=== PATIENT | female | born 1955 | race Caucasian/White ===

== ENCOUNTER 2018-09-24 01:03 | Outpatient (CLI) | payer BC, SELFPAY ==
--- NOTE | 2018-09-24 11:39 | DI.MAMMO_ITS ---
SYMPTOMS/DIAGNOSIS: SCREENING, Z12.31 MAMMOGRAM: Mammograms were interpreted according to the usual protocol including computer analysis with CAD system, tomosynthesis and C view imaging. The breasts are heterogeneously dense. No dominant mass or clumped microcalcification is identified in either breast. Current examination is compared with previous examinations including March 2016 and there is a question of increased prominence of a focal area of asymmetric density projected in the central superior portion of the right breast on MLO view in comparison with the previous examinations. Additional mammographic views of this area are requested to include MLO spot compression view of the right breast. CONCLUSION: Additional mammographic views of the right breast requested as described above. Breast ultrasound may be indicated as well depending on the results of the additional mammographic views. Category 0, breast density category C. MQSA ASSESSMENT OF FINDINGS: Incomplete: Needs additional imaging evaluation. Category 0. Patient will receive a letter notifying them of these results. Bi-RADS category C. The breasts are heterogeneously dense, which may obscure small masses.
== END 2018-09-24 01:23 ==
PROVIDERS: PCP Family Medicine; Visit Provider Family Medicine
DX: Z12.31 Encounter for screening mammogram for malignant neoplasm of breast (principal); R92.8 Other abnormal and inconclusive findings on diagnostic imaging of breast
CPT/HCPCS: 77063; 77067

== ENCOUNTER 2018-09-27 07:14 | Outpatient (CLI) | payer BC, SELFPAY ==
--- NOTE | 2018-09-27 13:00 | DI.COMBO_ITS ---
SYMPTOMS/DIAGNOSIS: F/U ABNORMAL MAMMO, INCREASED PROMINENCE, FOCAL AREA OF ASYMMETRIC DENSITY, CENTRAL SUPERIOR PORTION ADDITIONAL VIEWS OF THE RIGHT BREAST AND RIGHT BREAST ULTRASOUND: Additional images are interpreted according to the usual protocol including tomosynthesis and 2D imaging. No persistent mass or microcalcification is seen on the additional view of the right breast. A right breast ultrasound was performed. The upper inner and upper outer quadrants were evaluated sonographically. No cystic or solid masses are seen. IMPRESSION: No definite evidence for malignancy. A six-month follow-up right mammogram is requested for reevaluation. Category 3, breast density C. The findings were discussed with the patient on the date of the examination. MQSA ASSESSMENT OF FINDINGS: Probably benign. Six month follow-up recommended. Category 3. Patient will receive a letter notifying them of these results. Bi-RADS category C. The breasts are heterogeneously dense, which may obscure small masses.
== END 2018-09-27 07:34 ==
PROVIDERS: PCP Family Medicine; Visit Provider Family Medicine
DX: Z12.31 Encounter for screening mammogram for malignant neoplasm of breast (principal); R92.8 Other abnormal and inconclusive findings on diagnostic imaging of breast; N64.59 Other signs and symptoms in breast
CPT/HCPCS: 76642; 77063; 77067

== ENCOUNTER 2018-10-12 03:42 | Outpatient (CLI) | payer BC, SELFPAY ==
--- NOTE | 2018-10-12 08:00 | NS.NUTBLAN_ITS ---
DESCRIPTION: Jazmin James presents for prediabetes with focus on weight loss. Has co-morbidities of arthritis and low energy. BMI 30 She reports weight gain 40 pounds over past 15 years. Currently stopped gaining. Eats shredded wheat, banana, whole milk for breakfast; meat/cheese sandwich with lettuce, price or butter for lunch, last night chicken quarter, peas, croatian fries. Snacks on popcorn with butter. 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 INTERVENTION: Discussed early intervention and principles of the Diabetes Prevention Program. Focus on balance of food choices, portions, eating out of hunger, mindful eating practices.Reviewed diabetes food guide. Discussed goal of 150 minutes physical activity a week. Discussed impact of stress on diabetes. PLAN: Jazmin will: increase vegetables; decrease protein portion; consider hunger/fullness and attempt to eat to satisfaction Continue physical activity with variety of activities for stretch, strength and cardiovascular
== END 2018-10-12 04:02 ==
PROVIDERS: PCP Family Medicine; Visit Provider Dietitian, Registered
DX: R73.03 Prediabetes (principal); Z68.30 Body mass index [BMI] 30.0-30.9, adult; Z71.3 Dietary counseling and surveillance
CPT/HCPCS: 97802

== ENCOUNTER 2018-12-13 02:13 | Outpatient (CLI) | payer BC, SELFPAY ==
[2018-12-13 07:38] LABS: Hemoglobin A1C 5.9 % (4.5-6.2)
[2018-12-13 08:17] LABS: Anion Gap 14.8 mmol/L (3-11); BUN 20 mg/dL (7-18); CO2 27.2 mmol/L (21.0-32.0); CREATININE 0.82 mg/dL (0.55-1.02); Calculated LDL 115 mg/dL; Chloride 101 mmol/L (98-107); Cholesterol 194 mg/dL (50-200); Glucose 90 mg/dL (70-100); HDL Cholesterol 60 mg/dL (40-60); Potassium 4.7 mmol/L (3.5-5.1); Sodium 143 mmol/L (136-145); Triglyceride 99 mg/dL (30-150)
== END 2018-12-13 02:33 ==
PROVIDERS: PCP Family Medicine; Visit Provider Family Medicine
DX: E78.5 Hyperlipidemia, unspecified (principal)
CPT/HCPCS: 36415; 80048; 80061; 83721; 83036

== ENCOUNTER 2019-04-01 00:07 | Outpatient (CLI) | payer BC, SELFPAY ==
--- NOTE | 2019-04-01 13:33 | DI.MAMMO_ITS ---
EXAM: MG MAMMO DIAGNOSTIC UNI CLINICAL HISTORY: 6-MO F/U ABNL RT BREAST MAMMO, R92.8 TECHNIQUE: Mammograms were interpreted according to the usual protocol including computer analysis w [employer] CAD system, tomosynthesis and C-view imaging. COMPARISON: 2010 through September,. FINDINGS: The breasts are composed of scattered fibroglandular densities, Breast Density category B. This is a six-month follow-up from September of 2018 for questioned superior asymmetric density. The prev iously questioned area of nodularity is not seen on the current exam. No suspicious masses or suspic ious microcalcifications are seen. No skin thickening or abnormal axillary lymph nodes are seen. There has been no significant change from prior exams. IMPRESSION: BIRADS Category 1, negative mammogram. Bilateral screening should be resumed in 6 months. BI-RADS Cat 1 - Negative Breast Density - Category C - Heterogeneously dense
== END 2019-04-01 00:27 ==
PROVIDERS: PCP Family Medicine; Visit Provider Family Medicine
DX: Z12.31 Encounter for screening mammogram for malignant neoplasm of breast (principal); R92.8 Other abnormal and inconclusive findings on diagnostic imaging of breast; N64.59 Other signs and symptoms in breast
CPT/HCPCS: 77061; 77065; G0279

== ENCOUNTER 2020-01-27 18:24 | Outpatient (REF) | payer BC, SELFPAY ==
[2020-01-27 19:24] LABS: Hemoglobin A1C 6.2 % (<5.7)
[2020-01-27 19:25] LABS: Calculated LDL 108 mg/dL (<100); Cholesterol 236 mg/dL (<200); HDL Cholesterol 63 mg/dL (40-60); Triglyceride 328 mg/dL (<150)
== END 2020-01-27 18:44 ==
LOC: NCHCN 18:24
PROVIDERS: PCP Family Medicine; Visit Provider Family Medicine
DX: E78.5 Hyperlipidemia, unspecified (principal); R73.03 Prediabetes
CPT/HCPCS: 80061; 83036

== ENCOUNTER 2020-04-02 03:06 | Outpatient (CLI) | payer BC, SELFPAY ==
--- NOTE | 2020-04-02 | DI.MAMMO_ITS ---
EXAM: MG MAMMO SCREENING CLINICAL HISTORY: SCREENING,Z12.31. TECHNIQUE: Bilateral full field digital CC and MLO mammographic images were obtained with 3D tomosyn thesis and utilizing computer aided detection (CAD). COMPARISON: Prior mammograms dating back to 2010, the most recent being March 2019. Prior breast ultrasound 2016 was reviewed. FINDINGS: Small benign-appearing nodules upper outer quadrant left breast are unchanged and been previously mar ked skin moles. In the anterior left breast medial of center there is an oval noncalcified well-defined nodule measur ing 2.4 by 0.9 centimetres, unchanged from 2011 and therefore benign. Is a CAD designation over find ing in left breast on the CC view slightly lateral center but 3D imaging does not reveal a a concerni ng mass at this level. There are no malignant-appearing microcalcification groups in either breast. There is no new architectural distortion nor skin thickening-retraction. IMPRESSION: Stable benign-appearing findings. No radiographic evidence of malignancy BI-RADS Category 2 - Benign Findings Breast Density - Category C - Heterogeneously dense Breast density Category C or D implies that the patient has dense breast tissue. Dense breast tissue can make it harder to find cancer on a mammogram. Dense breast tissue is also associated with an incr eased risk of breast cancer. This information about the result of the mammogram report was provided to the patient to raise their awareness. Use this report when you speak with the patient about their risks for breast cancer, which includes their family history. At that time, you may recommend additional screening tests (Ultrasoun d or MRI) as these tests may add significant information. A negative radiographic report should not delay biopsy if a dominant or clinically suspicious mass is present. Up to ten percent of cancers are not identified on mammography. A negative report may reinforce clinical impression. Adenosis and dense breasts may obscure an underlying neoplasm. False positive reports average 6 to 10%. Patient will receive a letter notifying them of these results.
== END 2020-04-02 03:26 ==
PROVIDERS: PCP Family Medicine; Visit Provider Family Medicine
DX: Z12.31 Encounter for screening mammogram for malignant neoplasm of breast (principal)
CPT/HCPCS: 77063; 77067

== ENCOUNTER 2020-12-03 10:01 | Emergency (ER) | payer MEDICARE, SELFPAY ==
--- NOTE | 2020-12-03 10:03 | ED.GENADUL_ITS ---
Discharge Plan Disposition Patient Disposition: HOME Condition: Stable Discharge Details Clinical Impression: Abscess of axilla, left Primary Care Provider: Pearl Choe ED Provider: Kacey Lopez Home Meds and New Rx's Prescriptions: New sulfamethoxazole-trimethoprim [Bactrim DS] 800-160 mg tablet 1 tab PO BID 7 Days Qty: 14 RF: 0 Continued simvastatin 10 mg tablet 10 mg PO DAILY RF: 0 esomeprazole magnesium [Nexium 24HR] 20 mg capsule,delayed release(DR/EC) 20 mg PO DAILY RF: 0 cephalexin 500 mg capsule 500 mg PO QID Qty: 28 RF: 0 calcium carbonate 500 MG tablet 500 mg PO RF: 0 estradiol [Vagifem] 10 MCG tablet 10 mcg VG HS Qty: 24 RF: 4 Discharge Instructions Instructions: Abscess (ED) Additional Instructions: Keep wound clean and dry and covered. Try to keep dressing in place until you return to the emergency department in 2 days. If the outer dressing becomes wet or contaminated, you can replace the outer dressing but do not remove the inside packing. Continue your Keflex antibiotic and take as directed until finished. Start the Bactrim antibiotic today and take this until finished. Return to the emergency department in 2 days for wound recheck and packing removal. Return to the emergency department anytime if you develop any worsening or new concerning symptoms such as fever, increased pain, redness or swelling. Discharge Data Discharge Date/Time-TO BE ENTERED AT DEPARTURE: 12/03/20 11:20 Discharge Physician: Kacey Lopez Medical Decision Making 65-year-old female presents for evaluation after sent by the urgent care for concern for inadequate drainage of a left axilla abscess. Patient states she started with a left axillary pimple 1 week ago which then progressed with increased swelling, redness and pain. She was seen at urgent care 2 days ago and started on Keflex and presented there today with concern for worsening symptoms. The provider at urgent care attempted to I&D incision x 2 and only a small amount of pus drainage expressed and sent here for concern for inadequate drainage. There are 2 linear incisions noted at left axilla with a 4 x 3 cm area of raised tender induration. There is no fluctuance. There is no pus drainage expressed with palpation. A bedside ultrasound performed at left axilla site and there is a questionable small area of fluid collection. 5 cc of lidocaine with epinephrine injected into area near one of the I&D incisions and a deeper incision made within this incision with a #11 blade. Only bloody drainage expressed and no additional pus. Suspect the fluid collection seen on ultrasound is likely blood/hematoma. Suspect remaining area of swelling and p ain is likely induration/cellulitis. Will add additional antibiotic coverage with Bactrim. Patient advised to take the Keflex as directed until finished. The abscess site was also irrigated and 1/4 inch iodoform packing placed. She was advised to return here in 2 days for wound check and packing removal. Usual and customary return precautions given prior to discharge. HPI General Mode of arrival: ambulatory . Date/Time Provider Initiated Documentation: 12/03/20 10:01 . Limitations to Documentation: no limitations . Information obtained by: patient . HPI Narrative: Patient is a 65-year-old female who presents from the [facility] for further evaluation of a left axilla abscess. Patient states 1 week ago she developed a pimple in her left axilla for which she was seen at [facility] and started on oral antibiotics and advised to use warm compresses. She states the symptoms did not improve and she presented to the [facility] today where she had an I&D x2 sites. [facility] called stating they were able to drain a small amount of pus but were concerned about inadequate drainage and referred her here for further evaluation. Patient states she had a low-grade fever this week of but states it has been resolved over the past few days. She states she did shave her axilla area over 1 week ago. Related Data Home Medications Medication Instructions Recorded Confirmed calcium carbonate 500 mg PO 08/30/12 11/30/20 estradiol [Vagifem] 10 mcg VG HS #24 tab 04/25/17 12/05/20 cephalexin 500 mg capsule 500 mg PO QID #28 cap 11/30/20 12/05/20 esomeprazole magnesium 20 mg 20 mg PO DAILY 11/30/20 12/05/20 capsule,delayed release simvastatin 10 mg tablet 10 mg PO DAILY 11/30/20 12/05/20 sulfamethoxazole-trimethoprim 1 tab PO BID 7 Days #14 tab 12/03/20 12/05/20 [Bactrim DS] Previous Rx's Medication Instructions Recorded estradiol [Vagifem] 10 mcg VG HS #24 tab 04/25/17 cephalexin 500 mg capsule 500 mg PO QID #28 cap 11/30/20 sulfamethoxazole-trimethoprim 1 tab PO BID 7 Days #14 tab 12/03/20 [Bactrim DS] Allergies Allergy/AdvReac Type Severity Reaction Status Date / Time tetracycline Allergy Mild Rash Verified 12/05/20 07:59 Review of Systems All systems reviewed & are unremarkable except as noted in HPI and below Constitutional Constitutional: Reports as per HPI, Denies chills and Denies fever(s) Eyes Eyes: Denies blurry vision ENT Ears, Nose, Mouth, and Throat: Denies dizziness, Denies sore throat and Denies throat swelling Cardiovascular Cardiovascular: Denies chest pain and Denies dyspnea Respiratory Respiratory: Denies cough and Denies dyspnea Gastrointestinal Gastrointestinal: Denies abdominal pain, Denies diarrhea and Denies vomiting Genitourinary Genitourinary: Denies hematuria and Denies dysuria Musculoskeletal Musculoskeletal: Denies back pain and Denies numbness Integumentary/Breasts Skin/Breast: Denies lesions and Denies rash Neurologic Neurologic: Denies dizziness, Denies localized weakness and Denies numbness Allergic/Immunologic Allergic/Immunologic: Denies throat swelling PFSH Medical History (Updated 12/05/20 @ 08:29 by Kacey Lopez DO) Hx of hyperlipidemia Surgical History (Updated 12/03/20 @ 11:32 by Kacey Lopez DO) History of hysterectomy Social History Smoking/Tobacco Use Status: Never Smoking risk assessment performed?: Yes Alcohol Intake: current Alcohol Intake frequency: holidays/special occasions only Substance use type: does not use Do you feel safe at home: Yes Do you feel safe in your relationship?: Yes Exam Const General: cooperative, healthy appearing and no acute distress HENMS Head: normal to inspection Mouth: oral mucosae normal Eyes General: appearance normal, both eyes and all related structures Neck Neck: normal visual inspection Resp Effort & Inspection: normal respiratory effort and able to speak in complete sentences Cardio Rate: regular rate Skin General skin exam: no rashes or lesions noted Neuro General: patient alert, patient awake and patient oriented x3 Motor: muscle tone normal throughout Extrem Other: There is an approximate 4 x 3 cm area of tender induration and mild erythema located within the left axilla. There is a 1 cm linear incision more superior and laterally and a 4 mm linear incision just inferior and medial to this. There is mild active oozing of blood. There is no pus drainage when these 2 areas are expressed. Psych Appearance: grossly normal Affect: normal affect Procedures Abscess I/D Site: Upper Extremity (axilla) Side (if applicable): Left Local Anesthetic: Lidocaine 1% and With Epi Amount of anesthesia used (mL): 5 Technique: Incised with #11 Blade Amount of fluid expressed (mL): 1 (serosanguinous) Irrigation: Yes Packing used?: Iodoform
[2020-12-03 10:09] VITALS: BP 178/79; PULSE 63; RESP 16; TEMP 36.6; O2SAT 99
[2020-12-03 11:08] VITALS: BP 166/65; PULSE 68; RESP 18; TEMP 36.5; O2SAT 99
[2020-12-03] MEDS: Sulfameth/Trimeth DS TAB 1 TAB PO (11:13)
== END 2020-12-03 11:20 | disposition home or self-care (01) ==
PROVIDERS: Emergency Provider Physician Assistant; PCP Family Medicine
DX: L02.412 Cutaneous abscess of left axilla (principal)
CPT/HCPCS: 10061; 99284; 99283

== ENCOUNTER 2020-12-05 07:49 | Emergency (ER) | payer MEDICARE, SELFPAY ==
[2020-12-05 07:55] VITALS: BP 154/61; PULSE 74; TEMP 36.7; O2SAT 98
--- NOTE | 2020-12-05 08:05 | ED.GENADUL_ITS ---
Discharge Plan Disposition Patient Disposition: HOME Condition: Improving Discharge Details Clinical Impression: Visit for wound check, Abscess of axilla, left Primary Care Provider: Pearl Choe ED Provider: Kacey Lopez Home Meds and New Rx's Prescriptions: Continued simvastatin 10 mg tablet 10 mg PO DAILY RF: 0 esomeprazole magnesium [Nexium 24HR] 20 mg capsule,delayed release(DR/EC) 20 mg PO DAILY RF: 0 cephalexin 500 mg capsule 500 mg PO QID Qty: 28 RF: 0 calcium carbonate 500 MG tablet 500 mg PO RF: 0 estradiol [Vagifem] 10 MCG tablet 10 mcg VG HS Qty: 24 RF: 4 sulfamethoxazole-trimethoprim [Bactrim DS] 800-160 mg tablet 1 tab PO BID 7 Days Qty: 14 RF: 0 Discharge Instructions Instructions: Acute Wound Care (ED), Abscess (ED) Additional Instructions: Drink plenty of fluids and get plenty of rest. Take both of your antibiotics as directed until finished. You can start taking a probiotic which can help maintain your regular gut bacteria and may help prevent diarrhea. Call your primary care doctor's office on Monday morning to schedule a follow-up appointment for reevaluation this week. Return immediately to the emergency department if you develop any worsening or new concerning symptoms such as fever, increased pain, redness or swelling. Discharge Data Discharge Date/Time-TO BE ENTERED AT DEPARTURE: 12/05/20 08:37 Discharge Physician: Kacey Lopez Medical Decision Making 65-year-old female presents for packing removal status post I&D of left axilla abscess 2 days ago. She is taking her to antibiotics as directed. She denies fever and states her symptoms are much improved. Packing fell out overnight. Left axilla induration improved and there is no erythema, fluctuance. Area expressed and only serosanguineous drainage and no pus drainage. Overall this area appears much improved. Do not see indication for repacking the wound. She is advised to take her antibiotics as directed until finished. Advised to follow-up with the PCP this week for reevaluation. Usual and customary return precautions given prior to discharge. Medical Records Medical records reviewed: Yes I reviewed the patient's medical records. HPI General Mode of arrival: ambulatory . Date/Time Provider Initiated Documentation: 12/05/20 08:05 . Limitations to Documentation: no limitations . Information obtained by: patient . HPI Narrative: Patient is a 65-year-old female who presents for wound check and packing removal of her left axilla abscess. Patient was seen here 2 days ago for left axilla abscess which was initially seen by urgent care and started on antibiotics and when her symptoms worsened, seen again by urgent care with incision and drainage which was thought to be inadequate and sent to the ER for further evaluation. Patient had bedside ultrasound which questioned potential fluid but this is likely hematoma as no pus drainage was further expressed. Patient had been started on Keflex for urgent care and Bactrim was added on her ED visit 2 days ago. She states her pain is much better. She states the packing fell out overnight last night. She states she has been taking her antibiotic as directed. She denies any fever. She states overall she feels much better. Related Data Home Medications Medication Instructions Recorded Confirmed calcium carbonate 500 mg PO 08/30/12 11/30/20 estradiol [Vagifem] 10 mcg VG HS #24 tab 04/25/17 12/05/20 cephalexin 500 mg capsule 500 mg PO QID #28 cap 11/30/20 12/05/20 esomeprazole magnesium 20 mg 20 mg PO DAILY 11/30/20 12/05/20 capsule,delayed release simvastatin 10 mg tablet 10 mg PO DAILY 11/30/20 12/05/20 sulfamethoxazole-trimethoprim 1 tab PO BID 7 Days #14 tab 12/03/20 12/05/20 [Bactrim DS] Previous Rx's Medication Instructions Recorded estradiol [Vagifem] 10 mcg VG HS #24 tab 04/25/17 cephalexin 500 mg capsule 500 mg PO QID #28 cap 11/30/20 sulfamethoxazole-trimethoprim 1 tab PO BID 7 Days #14 tab 12/03/20 [Bactrim DS] Allergies Allergy/AdvReac Type Severity Reaction Status Date / Time tetracycline Allergy Mild Rash Verified 12/05/20 07:59 General Stated Complaint: Recheck PROSPER: 4 Review of Systems All systems reviewed & are unremarkable except as noted in HPI and below Constitutional Constitutional: Reports as per HPI, Denies chills and Denies fever(s) Eyes Eyes: Denies blurry vision ENT Ears, Nose, Mouth, and Throat: Denies dizziness, Denies sore throat and Denies throat swelling Cardiovascular Cardiovascular: Denies chest pain and Denies dyspnea Respiratory Respiratory: Denies cough and Denies dyspnea Gastrointestinal Gastrointestinal: Denies abdominal pain, Denies diarrhea and Denies vomiting Genitourinary Genitourinary: Denies hematuria and Denies dysuria Musculoskeletal Musculoskeletal: Denies back pain and Denies numbness Integumentary/Breasts Skin/Breast: Reports lesions and Denies rash Neurologic Neurologic: Denies dizziness, Denies localized weakness and Denies numbness Allergic/Immunologic Allergic/Immunologic: Denies throat swelling PFSH Medical History (Updated 12/05/20 @ 08:29 by Kacey Lopez DO) Hx of hyperlipidemia Surgical History (Updated 12/03/20 @ 11:32 by Kacey Lopez DO) History of hysterectomy Social History Smoking/Tobacco Use Status: Never Smoking risk assessment performed?: Yes Alcohol Intake: current Alcohol Intake frequency: holidays/special occasions only Substance use type: does not use Do you feel safe at home: Yes Do you feel safe in your relationship?: Yes Exam Const General: cooperative, healthy appearing and no acute distress HENMT Head: normal to inspection Face and sinus: normal facial exam Eyes General: appearance normal, both eyes and all related structures EOM: EOM intact bilaterally Neck Neck: normal visual inspection and No submandibular swelling Lymphatic: no lymphadenopathy noted Chest Chest: normal inspection of the chest and no tenderness Resp Effort & Inspection: normal respiratory effort and able to speak in complete sentences Auscultation: clear to auscultation bilaterally Cardio Rate: regular rate Rhythm: regular rhythm GI Inspection: normal to inspection Palpation: soft, not firm, not rigid and nontender Auscultation: normal bowel sounds Skin Other: Two incisions in L axilla healing well, minimal serosanginous drainage. No pus drainage. Induration improved. Nontender. No fluctuance. Neuro General: patient alert, patient awake and patient oriented x3 Cognition: normal cognition Speech: speech normal Motor: muscle tone normal throughout Sensory Exam: no sensory deficits noted Extrem General: normal to inspection, full ROM, capillary refill normal, no calf tenderness bilaterally and no edema Psych Appearance: grossly normal Mental Status: mental status grossly normal Speech and Movement: speech and movement normal Affect: normal affect Course Vital Signs Vital signs: Vital Signs Temperature 98.1 F 12/05/20 07:55 Pulse 74 12/05/20 07:55 Blood Pressure 154/61 H 12/05/20 07:55 Pulse Oximetry 98 12/05/20 07:55 Temperature 98.1 F 12/05/20 07:55 Temperature Source Temporal Artery Scan 12/05/20 07:55 Pulse 74 12/05/20 07:55 Respiratory Effort Non-Labored 12/05/20 07:57 Blood Pressure 154/61 H 12/05/20 07:55 Blood Pressure Position Sitting 12/05/20 07:55 Pulse Oximetry 98 12/05/20 07:55 Oxygen Delivery Method Room Air 12/05/20 07:55 Oxygen Flow Rate 0 12/05/20 07:55 Pain Level 0 12/05/20 07:55
== END 2020-12-05 08:37 | disposition home or self-care (01) ==
PROVIDERS: Emergency Provider Physician Assistant; PCP Family Medicine
DX: L02.412 Cutaneous abscess of left axilla (principal); Z48.01 Encounter for change or removal of surgical wound dressing

== ENCOUNTER 2020-12-14 14:07 | Outpatient (CLI) | payer MEDICARE, SELFPAY ==
--- NOTE | 2020-12-14 13:15 | DI.RAD_ITS ---
Exam(s) XR SHOULDER RT COMPLETE 2+V EXAM: XR SHOULDER RT COMPLETE 2+V CLINICAL HISTORY: shoulder pain. TECHNIQUE: 2D digital imaging was performed. COMPARISON: No exams were available for comparison FINDINGS: Two views of the right shoulder reveal no evidence of fracture or dislocation no abnormal soft tissue calcifications. The subacromial space is not diminished. Minimal degenerative changes in the AC juan int. No obvious degenerative changes of glenohumeral joint. No osseous lesions. Bone density appea rs normal. IMPRESSION: No significant radiograph findings on this limited two view study of the right shoulder. DATA REPOSITORY: RADIATION DOSE DELIVERED:
== END 2020-12-14 14:08 | disposition home or self-care (01) ==
LOC: DIORS 14:07
PROVIDERS: PCP Family Medicine; Referring Provider Family Medicine; Visit Provider Student in an Organized Health Care Education/Training Program
DX: M25.511 Pain in right shoulder (principal); S46.011A Strain of muscle(s) and tendon(s) of the rotator cuff of right shoulder, initial encounter; W17.81XA Fall down embankment (hill), initial encounter
CPT/HCPCS: 99214; 73030

== ENCOUNTER 2020-12-26 13:34 | Emergency (ER) | payer MEDICARE, SELFPAY ==
[2020-12-26 13:53] VITALS: BP 153/78; PULSE 68; RESP 18; TEMP 36; O2SAT 98
--- NOTE | 2020-12-26 14:15 | W.ED.GENAD ---
Discharge Plan Disposition Patient Disposition: HOME Condition: Stable Discharge Details Clinical Impression: Cellulitis of hand, right Primary Care Provider: Pearl Choe ED Provider: Guero Ruiz Home Meds and New Rx's Prescriptions: New sulfamethoxazole-trimethoprim [Bactrim DS] 800-160 mg tablet 1 tab PO BID Qty: 14 RF: 0 Continued simvastatin 10 mg tablet 10 mg PO DAILY RF: 0 esomeprazole magnesium [Nexium 24HR] 20 mg capsule,delayed release(DR/EC) 20 mg PO DAILY RF: 0 cephalexin 500 mg capsule 500 mg PO QID Qty: 28 RF: 0 calcium carbonate 500 MG tablet 500 mg PO RF: 0 estradiol [Vagifem] 10 MCG tablet 10 mcg VG HS Qty: 24 RF: 4 alprazolam 0.5 mg tablet 0.5 mg PO ONCE PRN (Reason: claustrophobia) Qty: 2 RF: 0 Discharge Instructions Additional Instructions: continue the cephalexin and start the bactrim if you develop severe worsening pain, fevers or feel more ill return to the emergency department Medical Decision Making 65 yo female who sustained a bite of some sort from an insect on her right proximal thumb and has had several days of rednes to the area. She has had 4 doses of cephalexin and still has redness so came here for an evaluation. She denies fever or chills and appears well on exam, speaking in full sentences in no distress. She has 3cm of erythema with a white pustule at the center on the posterior right proximal thumb. She has full range of motion of the thumb and wrist without significant pain and has no crepitus. The urgent care viktoria lines where the redness was initially and she felt it was spreading beyond this but on my exam the erythema is smaller than the lines drawn. I did use a 21G needle and got a small amount of purulent bloody material (about 2cc) from the white head, no other pockets on bedside u/s that can be drained. given well appearance and lack of other symptoms doubt sepsis and do not feel labs indicated at this time. I do not feel she requires IV antibiotics at this time, will add mrsa coverage with bactrim and return precautions given Differential Diagnosis Differential Diagnosis: cellulitis, abscess HPI General Mode of arrival: ambulatory. Date/Time Provider Initiated Documentation: 12/26/20 13:58. Limitations to Documentation: no limitations. Information obtained by: patient. History of Present Illness 65 year old F presents to the emergency department with the chief complaint of right hand redness, described as moderate, and it has been constant. No relieving factors improve symptom(s), No exacerbating factors reported . Patient notes no other symptoms.. Related Data Home Medications Medication Instructions Recorded Confirmed calcium carbonate 500 mg PO 08/30/12 12/25/20 estradiol [Vagifem] 10 mcg VG HS #24 tab 04/25/17 12/26/20 esomeprazole magnesium 20 mg 20 mg PO DAILY 11/30/20 12/26/20 capsule,delayed release simvastatin 10 mg tablet 10 mg PO DAILY 11/30/20 12/26/20 alprazolam 0.5 mg tablet 0.5 mg PO ONCE PRN #2 tab 12/17/20 12/26/20 cephalexin 500 mg capsule 500 mg PO QID #28 cap 12/25/20 12/26/20 sulfamethoxazole-trimethoprim 1 tab PO BID #14 tab 12/26/20 [Bactrim DS] Previous Rx's Medication Instructions Recorded estradiol [Vagifem] 10 mcg VG HS #24 tab 04/25/17 alprazolam 0.5 mg tablet 0.5 mg PO ONCE PRN #2 tab 12/17/20 cephalexin 500 mg capsule 500 mg PO QID #28 cap 12/25/20 sulfamethoxazole-trimethoprim 1 tab PO BID #14 tab 12/26/20 [Bactrim DS] Allergies Allergy/AdvReac Type Severity Reaction Status Date / Time tetracycline Allergy Mild Rash Verified 12/25/20 17:48 General Stated Complaint: Cellulitis PROSPER: 3 Review of Systems All systems reviewed & are unremarkable except as noted in HPI and below Constitutional Constitutional: Denies chills, Denies fever(s) and Denies weakness Cardiovascular Cardiovascular: Denies chest pain and Denies dyspnea Respiratory Respiratory: Denies cough and Denies dyspnea Gastrointestinal Gastrointestinal: Denies abdominal pain, Denies nausea and Denies vomiting Musculoskeletal Musculoskeletal: Denies joint swelling Neurologic Neurologic: Denies weakness [facility] Medical History (Updated 12/26/20 @ 14:17 by Guero Ruiz MD) Atrophic vaginitis (11/20/13) Vagifem 10mcg PV HS twice weekly Dyspareunia in female (03/07/16) Hx of hyperlipidemia Iliotibial band syndrome of left side (10/18/17) Primary osteoarthritis of left knee (09/06/17) Surgical History (Updated 12/03/20 @ 11:32 by Kacey Lopez DO) History of hysterectomy Social History Smoking/Tobacco Use Status: Never Smoking risk assessment performed?: Yes Alcohol Intake: current Alcohol Intake frequency: holidays/special occasions only Substance use type: does not use Current gender identity: female Do you feel safe at home: Yes Do you feel safe in your relationship?: Yes Exam Const General: no acute distress Orientation: alert HENMT Head: normal to inspection Ears: external ears normal General nose exam: external nose normal Mouth: moist mucous membranes Eyes General: appearance normal, both eyes and all related structures Neck Neck: normal visual inspection Resp Effort & Inspection: normal respiratory effort and able to speak in complete sentences Cardio Rate: regular rate Skin General skin exam: elasticity normal Neuro General: patient alert and patient oriented x3 Extrem General: normal to inspection Psych Mental Status: mental status grossly normal Course Vital Signs Vital signs: Vital Signs Temperature 36 C L 12/26/20 13:53 Pulse 68 12/26/20 13:53 Respiratory Rate 18 12/26/20 13:53 Blood Pressure 153/78 H 12/26/20 13:53 Pulse Oximetry 98 12/26/20 13:53 Temperature 36 C L 12/26/20 13:53 Temperature Source Temporal Artery Scan 12/26/20 13:53 Pulse 68 12/26/20 13:53 Respiratory Rate 18 12/26/20 13:53 Respiratory Effort 12/26/20 14:01 Blood Pressure 153/78 H 12/26/20 13:53 Blood Pressure Position Sitting 12/26/20 13:53 Pulse Oximetry 98 12/26/20 13:53 Oxygen Delivery Method Room Air 12/26/20 13:53 Oxygen Flow Rate 0 12/26/20 13:53 Pain Level 6 12/26/20 13:53
== END 2020-12-26 14:29 | disposition home or self-care (01) ==
PROVIDERS: Emergency Provider Emergency Medicine; PCP Family Medicine
DX: L03.113 Cellulitis of right upper limb (principal)
CPT/HCPCS: 99283

== ENCOUNTER 2021-01-07 01:51 | Outpatient (CLI) | payer MEDICARE, SELFPAY ==
--- NOTE | 2021-01-07 09:00 | DI.MRI_ITS ---
Exam(s) MR UPPER JOINT RT WO EXAM: MR UPPER JOINT RT WO CLINICAL HISTORY: pain, ?RTC tear M25.511 PAIN RT SHOUDLER M75.101 ROTATOR CUFF TEAR OR RUPTU. TECHNIQUE: Multiplanar multisequence MRI was performed. COMPARISON: CR XR SHOULDER RT COMPLETE 2+V from 12/14/2020 FINDINGS: BONES: There is no fracture or contusion pattern. JOINTS: Moderate degenerative changes are seen at the acromioclavicular joint. Small subchondral cys ts are seen in the superior glenoid. This likely reflects mild degenerative change. There is mild t hinning of the articular cartilage noted. TENDONS: Supraspinatus: There is thickening and mildly hyperintense signal seen in the supraspinatus tendon. The findings would be consistent with tendinosis and/or partial tear. No evidence of a full-thicknes s tear is seen. Infraspinatus: No evidence of a infraspinatus tendon tear. Subscapularis: There is thickening of the subscapularis tendon with hyperintense signal. The finding s would be consistent with degeneration/tendinosis. There does appear to be hyperintense linear sign al near its insertion site suspicious for partial tear. Teres Minor: Unremarkable. Biceps and Corona: There is thickening and increased signal seen in the biceps tendon consistent with tendinosis and/or partial tear. There also appears to be some medial subluxation of the biceps tend on. MUSCLES: Unremarkable. GLENOID LABRUM: Unremarkable on this noncontrast examination. SOFT TISSUES: Unremarkable. LIGAMENTS: Unremarkable. OTHER: There is a small amount of fluid seen in the subacromial subdeltoid bursa. There is a small a mount of fluid seen in the subcoracoid bursa. IMPRESSION: 1. Tendinosis and/or partial tear of the supraspinatus tendon. 2. Findings suspicious for partial tear of the subscapularis tendon. Subscapularis tendinosis. 3. Tendinosis and/or partial tear of the biceps tendon. Medial subluxation of the biceps tendon. 4. Degenerative changes seen at the acromioclavicular joint and the glenohumeral joint. 5. Subacromial subdeltoid bursal fluid. DATA REPOSITORY:
== END 2021-01-07 02:11 ==
PROVIDERS: PCP Family Medicine; Visit Provider Student in an Organized Health Care Education/Training Program
DX: M25.511 Pain in right shoulder (principal); M75.101 Unspecified rotator cuff tear or rupture of right shoulder, not specified as traumatic; M75.01 Adhesive capsulitis of right shoulder; M19.011 Primary osteoarthritis, right shoulder
CPT/HCPCS: 73221

== ENCOUNTER → 2021-01-14 08:39 | Outpatient (BNVA) | payer MEDICARE, SELFPAY | PROVIDERS: PCP Family Medicine; Referring Provider Family Medicine; Visit Provider Student in an Organized Health Care Education/Training Program | DX: S46.011D Strain of muscle(s) and tendon(s) of the rotator cuff of right shoulder, subsequent encounter (principal); W19.XXXD Unspecified fall, subsequent encounter | CPT/HCPCS: 99212 ==

== ENCOUNTER 2021-01-27 15:04 | Outpatient (REF) | payer MEDICARE, SELFPAY ==
[2021-01-27 21:57] LABS: Hemoglobin A1C 6.2 % (<5.7)
[2021-01-28 06:37] LABS: Anion Gap 5.1 mmol/L (3-11); BUN 15 mg/dL (7-18); CO2 31.9 mmol/L (21.0-32.0); CREATININE 0.9 mg/dL (0.55-1.02); Calcium 9.8 mg/dL (8.5-10.1); Calculated LDL 125 mg/dL (<100); Chloride 101 mmol/L (98-107); Cholesterol 225 mg/dL (<200); Glucose 87 mg/dL (74-106); HDL Cholesterol 67 mg/dL (40-60); Potassium 4.5 mmol/L (3.5-5.1); Sodium 138 mmol/L (136-145); Triglyceride 169 mg/dL (<150)
[2021-01-29 11:11] LABS: Hepatitis C Ab w Rflx HCV PCR Negative (Negative)
[2021-01-29 11:25] LABS: HIV-1/2 Ag & Ab Screen Negative (Negative)
== END 2021-01-27 15:05 | disposition home or self-care (01) ==
LOC: NCHCN 15:04
PROVIDERS: PCP Family Medicine; Visit Provider Family Medicine
DX: E78.5 Hyperlipidemia, unspecified (principal); R73.03 Prediabetes; Z00.00 Encounter for general adult medical examination without abnormal findings
CPT/HCPCS: 80048; 80061; 86803; 87389; 83036

== ENCOUNTER → 2021-02-18 09:19 | Outpatient (BNVA) | payer MEDICARE, SELFPAY | PROVIDERS: PCP Family Medicine; Referring Provider Family Medicine | DX: S46.011D Strain of muscle(s) and tendon(s) of the rotator cuff of right shoulder, subsequent encounter (principal); X58.XXXD Exposure to other specified factors, subsequent encounter | CPT/HCPCS: 20610; J1040 ==

== ENCOUNTER 2021-04-04 08:00 | Outpatient (REF) | payer MEDICARE, SELFPAY ==
[2021-04-05 10:42] LABS: C Diff PCR Negative (Negative)
[2021-04-05 23:15] LABS: Campylobacter PCR Negative (Negative); Salmonella PCR Negative (Negative); Shiga Toxin PCR Negative (Negative); Shigella/Enteroinvasive Ecoli Negative (Negative)
[2021-04-07 20:01] LABS: Calprotectin 43.2 mcg/g
== END 2021-04-05 08:33 | disposition home or self-care (01) ==
LOC: LBN 08:00
PROVIDERS: PCP Family Medicine; Visit Provider Family Medicine
DX: R19.7 Diarrhea, unspecified (principal)
CPT/HCPCS: 87329; 87493; 87505; 83993

== ENCOUNTER 2021-07-12 02:04 | Outpatient (CLI) | payer MEDICARE, SELFPAY ==
--- NOTE | 2021-07-12 | DI.MAMMO_ITS ---
Exam(s) MAMMO SCREENING EXAM: MAMMO SCREENING CLINICAL HISTORY: SCREENING FOR BREAST CANCER Z12.31. TECHNIQUE: Bilateral full field digital CC and MLO mammographic images were obtained with 3D tomosyn thesis and utilizing computer aided detection (CAD). COMPARISON: Prior mammograms were reviewed, the most recent being March 2020. FINDINGS: There has been no significant change in the appearance and distribution of the fibroglandular tissue. Nodular density in the left breast is unchanged from prior studies and shown to be a skin mole on mike or skin marker study. There are no new spiculated masses nor malignant appearing microcalcification groups. There is no significant architectural distortion nor skin thickening-retraction. IMPRESSION: No radiographic evidence of malignancy. BI-RADS Category 1 - Negative Breast Density - Category C - Heterogeneously dense Breast density Category C or D implies that the patient has dense breast tissue. Dense breast tissue can make it harder to find cancer on a mammogram. Dense breast tissue is also associated with an incr eased risk of breast cancer. This information about the result of the mammogram report was provided to the patient to raise their awareness. Use this report when you speak with the patient about their risks for breast cancer, which includes their family history. At that time, you may recommend additional screening tests (Ultrasoun d or MRI) as these tests may add significant information. A negative radiographic report should not delay biopsy if a dominant or clinically suspicious mass is present. Up to ten percent of cancers are not identified on mammography. A negative report may reinforce clinical impression. Adenosis and dense breasts may obscure an underlying neoplasm. False positive reports average 6 to 10%. Patient will receive a letter notifying them of these results.
== END 2021-07-12 02:24 ==
PROVIDERS: PCP Family Medicine; Visit Provider Family Medicine
DX: Z12.31 Encounter for screening mammogram for malignant neoplasm of breast (principal)
CPT/HCPCS: 77063; 77067

== ENCOUNTER → 2021-07-27 10:20 | Outpatient (BNVA) | payer MEDICARE, SELFPAY | PROVIDERS: PCP Family Medicine; Referring Provider Family Medicine | DX: S46.011D Strain of muscle(s) and tendon(s) of the rotator cuff of right shoulder, subsequent encounter (principal); X58.XXXD Exposure to other specified factors, subsequent encounter | CPT/HCPCS: 20610; J1040 ==

== ENCOUNTER → 2021-10-01 00:32 | Outpatient (CLI) | payer MEDICARE, SELFPAY ==
--- NOTE | 2021-10-01 | DI.DEXA_ITS ---
Exam(s) XR DEXA BONE DENSITY W/WO SERA EXAM: XR DEXA BONE DENSITY W/WO SERA CLINICAL HISTORY: SCREENING FOR OSTEOPOROSIS IN POSTMENOPAUSAL WOMAN,Z78.0 TECHNIQUE: COMPARISON: Comparison examination is 09/23/2009. FINDINGS: Lateral Spine Image: Unremarkable. No compression deformities identified. Left hip: Total T-Score: -1.0. This compares to 0.1 on the prior examination. This is a decrease in the bone m ineral density. Total Z-Score: T- and Z-scores: Within normal limits. Note is made of osteopenia in the femoral neck with a T-score of -1.6. Lumbar Spine: Total T-Score: -0.8. This compares to -0.6. This is a decrease in the bone mineral density. Total Z-Score: 1.1 T- and Z-scores: Within normal limits. IMPRESSION: No evidence of osteoporosis.
== END ==
PROVIDERS: PCP Family Medicine; Visit Provider Internal Medicine Gastroenterology
DX: M85.852 Other specified disorders of bone density and structure, left thigh (principal); Z78.0 Asymptomatic menopausal state
CPT/HCPCS: 77080

== ENCOUNTER 2021-10-29 02:22 | Outpatient (CLI) | payer MEDICARE, SELFPAY ==
[2021-10-29 07:34] LABS: HCT 38.9 % (36.0-46.0); HGB 12.4 g/dL (11.2-15.7); MCH 27.8 pg (27.0-33.0); MCHC 31.9 % (32.0-36.0); MCV 87 fL (80-95); Platelet Count 333 10^3/uL (130-400); RBC 4.46 10^6/uL (3.93-5.22); RDW 17.8 % (11.7-14.6); RDW-SD 56.9 fL; WBC 8.78 10^3/uL (4.4-10.8)
[2021-10-29 08:47] LABS: Ferritin 18 ng/mL (8-252)
[2021-10-29 08:54] LABS: Iron 74 ug/dL (50-170); Total Iron Binding Capacity 341 ug/dL (250-450); Transferrin Sat 22 % (15-50)
== END 2021-10-29 02:23 | disposition home or self-care (01) ==
LOC: LBO 02:22
PROVIDERS: PCP Family Medicine; Visit Provider Family Medicine
DX: D50.9 Iron deficiency anemia, unspecified (principal)
CPT/HCPCS: 36415; 85027; 82728; 83540; 83550

== ENCOUNTER 2021-11-15 16:23 | Outpatient (REF) | payer MEDICARE, SELFPAY ==
[2021-11-17 11:19] LABS: COVID-19 RT-PCR UVMMC Result Positive (Negative)
== END 2021-11-15 16:24 | disposition home or self-care (01) ==
LOC: NCHCN 16:23
PROVIDERS: PCP Family Medicine; Visit Provider Family Medicine
DX: J06.9 Acute upper respiratory infection, unspecified (principal); U07.1 COVID-19
CPT/HCPCS: U0003

== ENCOUNTER 2022-01-31 16:24 | Outpatient (REF) | payer MEDICARE, SELFPAY ==
[2022-01-31 15:27] LABS: Hemoglobin A1C 6.5 % (<5.7)
== END 2022-01-31 16:25 | disposition home or self-care (01) ==
LOC: NCHCN 16:24
PROVIDERS: PCP Family Medicine; Visit Provider Family Medicine
DX: R73.03 Prediabetes (principal)
CPT/HCPCS: 83036

== ENCOUNTER 2022-03-02 12:38 | Emergency (ER) | payer MEDICARE, SELFPAY ==
[2022-03-02 12:43] VITALS: BP 162/75; PULSE 76; RESP 20; TEMP 36.4; O2SAT 99
--- NOTE | 2022-03-02 13:00 | RT.EKG_ITS ---
APPROVED REPORT Exam: Resting ECG Reason for Exam: SOB Patient Location: E HR:65 bpm ECG Measurements Heart Rate 65 AXIS MS 145 P 63 QRSd 98 QRS 3 QT 393 T 11 QTc 408 Conclusion Sinus rhythm...normal P axis, V-rate 60- 99 no STEMI, non-diagnostic EKG I have reviewed and interpreted ECG and agree with software generated interpretation.
[2022-03-02 13:15] LABS: Abs Immature Grans 0.02 10^3/uL (0.0-0.06); Absolute Basophil Count 0.05 10^3/uL (0.0-0.2); Absolute Eosinophil Count 0.07 10^3/uL (0.0-0.7); Absolute Lymphocyte Count 2.54 10^3/uL (1.2-3.4); Absolute Monocyte Count 0.49 10^3/uL (0.1-0.8); Absolute Neutrophil Count 3.98 10^3/uL (1.2-6.7); Basophils % 0.7; HCT 39.3 % (36.0-46.0); HGB 12.9 g/dL (11.2-15.7); Immature Grans % 0.3; Lymphocytes % 35.5; MCH 30.5 pg (27.0-33.0); MCHC 32.8 % (32.0-36.0); MCV 93 fL (80-95); MPV 10.1 fL (8.0-11.0); Monocytes % 6.9; Neutrophils % 55.6; Platelet Count 364 10^3/uL (130-400); RBC 4.23 10^6/uL (3.93-5.22); RDW 13.2 % (11.7-14.6); RDW-SD 45.1 fL; WBC 7.15 10^3/uL (4.4-10.8)
--- NOTE | 2022-03-02 13:15 | DI.CT_ITS ---
Exam(s) CT HEAD WO EXAM: CT HEAD WO CLINICAL HISTORY: Abnormal smells (gasoline) R/O Intracranial abnorm. TECHNIQUE: Imaging Protocol: Axial computed tomography images with coronal and sagittal reformatted images were created and reviewed COMPARISON: No exams were available for comparison FINDINGS: Ventricles and Extra axial spaces: Normal in size and morphology for the patient's age. Hemorrhage: None. Cerebral parenchyma: No evidence of an acute territorial infarct. Midline shift: None. Brainstem/Cerebellum: Normal. Calvarium: Normal. Visualized Paranasal sinuses/Mastoids: Clear. Soft Tissues: Unremarkable. IMPRESSION: 1. No acute intracranial process. 2. Findings were discussed with the emergency department at 2:34 p.m. on 03/02/2022. RADIATION DOSE DELIVERED: 695.92mGy.cm Total DLP DATA REPOSITORY: All CT scans at this facility are submitted to the National Radiology Data Registry (NRDR) Dose Index Registry (DIR) with the [employer] ([employer]). RADIATION OPTIMIZATION: All CT scans at this facility use at least one of these dose optimization te chniques: automated exposure control; mA and/or kV adjustment per patient size (includes targeted exa ms where dose is matched to clinical indication); or iterative reconstruction.
--- NOTE | 2022-03-02 13:18 | ED.GENADUL_ITS ---
Discharge Plan Disposition Patient Disposition: HOME Condition: Stable Discharge Details Clinical Impression: Altered olfactory perception Primary Care Provider: Pearl Choe ED Provider: Rose Webb Home Meds and New Rx's Prescriptions: Continued esomeprazole magnesium [Nexium 24HR] 20 mg capsule,delayed release(DR/EC) 20 mg PO DAILY ascorbic acid (vitamin C) 500 mg capsule 500 mg PO DAILY tfysayy-cilw-pwptn-oreg-capryl 100 mg-150 mg- 50 mg-150 mg capsule PO cholecalciferol (vitamin D3) 250 mcg (10,000 unit) capsule 250 mcg PO DAILY calcium carbonate 500 MG tablet 500 mg PO Label Comments: 09/06/17 No longer taking. HJG estradiol [Vagifem] 10 MCG tablet 10 mcg VG HS Qty: 24 4RF alprazolam 0.5 mg tablet 0.5 mg PO ONCE PRN (Reason: claustrophobia) Qty: 2 0RF Rx Instructions: Take within 3o minutes of MRI. Repeat x 1 if necessary. simvastatin 10 mg tablet 10 mg PO QPM triamcinolone acetonide 0.1 % lotion 1 applic topical DAILY hydrocortisone 2.5 % cream 1 applic topical BID PRN multivitamin Tablet 1 tab PO DAILY Discharge Instructions Instructions: Allergic Rhinitis (ED), Anxiety (ED) Additional Instructions: At this time your work-up is been reassuring. There is no obvious explanation for altered olfactory perception. Head CT is within normal limits, labs and EKG are also within normal limits. You may try an fswy-oym-dqzcefa allergy medication and you were placed on the care management list to help expedite your ENT follow-up appointment. Follow up with primary care provider in 3-5 days. Return to ED sooner if any worsening or concerns. Increase oral fluids. Referrals: Pearl Choe MD [Primary Care Provider] - Leobardo Nolen MD [ [facility] STAFF PHYSICIAN] - 2 weeks Discharge Data Discharge Date/Time-TO BE ENTERED AT DEPARTURE: 03/02/22 15:50 Medical Decision Making 66-year-old female presents to the ER with chief complaint of shortness of breath, feeling like her throat is swelling and diesel gasoline type smell since Monday. She reports that today smell got a lot worse she had some lightheadedness and felt like her throat was closing almost like an allergic reaction. She is speaking in full sentences upon arrival lungs are clear to auscultation no stridor. She has no obvious focal neurodeficits noted. Work-up ordered including CBC CMP, urinalysis and urine drug screening, head CT and chest x-ray and COVID swab. VBG and carboxyhemoglobin ordered to rule out carbon monoxide poisoning.'s are within normal limits. CBC shows no leukocytosis, VBG shows bicarb 30, base excess 5 carboxyhemoglobin 1.8% which is within normal limits, CO2 is 28 CMP shows a glucose of 131 otherwise within normal limits. Initial troponin negative. Urine drug screen is negative. CT head without contrast within normal limits. Differential diagnosis includes cranial mass, neuro abnormality, anxiety, med reaction I did discuss her negative work-up with patient and who verbalized understanding. She does have an appointment with ENT in a month. Patient was placed on care management list for aid and expedition of the appointment. I did discuss that if anything changes or gets worse to please return to the ER for further eval. She verbalized understanding remained hemodynamically stable and neurologically intact throughout her entire stay. This text was generated using [employer] dictation system, please disregard any oddities of phrase or misspellings. Lab Data Lab results reviewed: Yes I reviewed the patient's lab results. Labs: Laboratory Tests Range/Units 03/02/22 03/02/22 03/02/22 13:00 13:00 13:35 WBC (4.4-10.8) 10^3/uL 7.15 RBC (3.93-5.22) 10^6/uL 4.23 Hgb (11.2-15.7) g/dL 12.9 Hct (36.0-46.0) % 39.3 MCV (80-95) fL 93 MCH (27.0-33.0) pg 30.5 MCHC (32.0-36.0) % 32.8 RDW (11.7-14.6) % 13.2 Plt Count (130-400) 10^3/uL 364 MPV (8.0-11.0) fL 10.1 Immature Gran % 0.3 Neutrophils % 55.6 Lymphocytes % 35.5 Monocytes % 6.9 Eosinophils % 1.0 Basophils % 0.7 Nucleated RBC % (0.0-0.3) % 0.0 Absolute Neutrophils (1.2-6.7) 10^3/uL 3.98 Absolute Lymphocytes (1.2-3.4) 10^3/uL 2.54 Absolute Monocytes (0.1-0.8) 10^3/uL 0.49 Absolute Eosinophils (0.0-0.7) 10^3/uL 0.07 Absolute Basophils (0.0-0.2) 10^3/uL 0.05 VBG pH (7.31-7.41) VBG pCO2 (41-51) mmHg VBG pO2 mmHg VBG HCO3 (23-28) mmol/L VBG Total CO2 (24-29) mmol/L VBG O2 Saturation % VBG Base Excess (-2-3) mmol/L Carboxyhemoglobin % % Sodium (136-145) mmol/L 139 Potassium (3.5-5.1) mmol/L 3.9 Chloride (98-107) mmol/L 102 Carbon Dioxide (21.0-32.0) mmol/L 28.9 Anion Gap (3-11) mmol/L 8.1 BUN (7-18) mg/dL 10 Creatinine (0.55-1.02) mg/dL 0.9 Est GFR (CKD-EPI 2020) (mL/min/1.73m2) 70.51 Glucose (74-106) mg/dL 131 H Calcium (8.5-10.1) mg/dL 9.2 Magnesium (1.8-2.4) mg/dL 2.0 Total Bilirubin (0.2-1.0) mg/dL 0.2 AST (15-37) U/L 26 ALT (14-59) U/L 29 Alkaline Phosphatase (46-116) U/L 66 Troponin I (<or=60) ng/L < 50 Total Protein (6.4-8.2) g/dL 8.0 Albumin (3.4-5.0) g/dL 3.9 Urine Opiates Screen (Negative) Negative Urine Methadone Screen (Negative) Negative Ur Barbiturates Screen (Negative) Negative Ur Tricyclics Screen (Negative) Negative Ur Amphetamines Screen (Negative) Negative U Benzodiazepines Scrn (Negative) Negative Urine Cocaine Screen (Negative) Negative Ur THC Screen (Negative) Negative Range/Units 03/02/22 03/02/22 03/02/22 13:53 13:53 16:04 WBC (4.4-10.8) 10^3/uL RBC (3.93-5.22) 10^6/uL Hgb (11.2-15.7) g/dL Hct (36.0-46.0) % MCV (80-95) fL MCH (27.0-33.0) pg MCHC (32.0-36.0) % RDW (11.7-14.6) % Plt Count (130-400) 10^3/uL MPV (8.0-11.0) fL Immature Gran % Neutrophils % Lymphocytes % Monocytes % Eosinophils % Basophils % Nucleated RBC % (0.0-0.3) % Absolute Neutrophils (1.2-6.7) 10^3/uL Absolute Lymphocytes (1.2-3.4) 10^3/uL Absolute Monocytes (0.1-0.8) 10^3/uL Absolute Eosinophils (0.0-0.7) 10^3/uL Absolute Basophils (0.0-0.2) 10^3/uL VBG pH (7.31-7.41) 7.37 VBG pCO2 (41-51) mmHg 51 VBG pO2 mmHg 27 VBG HCO3 (23-28) mmol/L 30 H VBG Total CO2 (24-29) mmol/L 28 VBG O2 Saturation % 46 VBG Base Excess (-2-3) mmol/L 5 H Carboxyhemoglobin % % 1.8 Sodium (136-145) mmol/L Potassium (3.5-5.1) mmol/L Chloride (98-107) mmol/L Carbon Dioxide (21.0-32.0) mmol/L Anion Gap (3-11) mmol/L BUN (7-18) mg/dL Creatinine (0.55-1.02) mg/dL Est GFR (CKD-EPI 2020) (mL/min/1.73m2) Glucose (74-106) mg/dL Calcium (8.5-10.1) mg/dL Magnesium (1.8-2.4) mg/dL Total Bilirubin (0.2-1.0) mg/dL AST (15-37) U/L ALT (14-59) U/L Alkaline Phosphatase (46-116) U/L Troponin I (<or=60) ng/L Cancelled Total Protein (6.4-8.2) g/dL Albumin (3.4-5.0) g/dL Urine Opiates Screen (Negative) Urine Methadone Screen (Negative) Ur Barbiturates Screen (Negative) Ur Tricyclics Screen (Negative) Ur Amphetamines Screen (Negative) U Benzodiazepines Scrn (Negative) Urine Cocaine Screen (Negative) Ur THC Screen (Negative) HPI General Mode of arrival: ambulatory . Date/Time Provider Initiated Documentation: 03/02/22 12:48 . Limitations to Documentation: no limitations . Information obtained by: patient, RN notes reviewed and old records reviewed . HPI Narrative: 66-year-old female presents to the ER with chief complaint of shortness of breath, feeling like her throat is swelling and diesel gasoline type smell since Monday. She reports that today smell got a lot worse she had some lightheadedness and felt like her throat was closing almost like an allergic reaction. She is speaking in full sentences upon arrival lungs are clear to auscultation no stridor. She has no obvious focal neurodeficits noted. She does have a past medical history of adjustment disorder with depressed mood, anxiety, GERD, hyperlipidemia, obesity, osteoarthritis. Related Data Home Medications Medication Instructions Recorded Confirmed calcium carbonate 500 mg calcium 500 mg PO 08/30/12 07/27/21 (1,250 mg) tablet estradiol 10 mcg vaginal tablet 10 mcg vaginal HS #24 tabs 04/25/17 03/02/22 (Vagifem) esomeprazole magnesium 20 mg 20 mg PO DAILY 11/30/20 03/02/22 capsule,delayed release (Nexium 24HR) alprazolam 0.5 mg tablet 0.5 mg PO ONCE PRN claustrophobia 12/17/20 07/27/21 #2 tabs hydrocortisone 2.5 % topical cream 1 applic topical BID PRN 05/24/21 03/02/22 multivitamin 1 tab PO DAILY 05/24/21 03/02/22 simvastatin 10 mg tablet 10 mg PO QPM 05/24/21 03/02/22 triamcinolone acetonide 0.1 % 1 applic topical DAILY 05/24/21 03/02/22 lotion ascorbic acid (vitamin C) 500 mg 500 mg PO DAILY 06/29/21 03/02/22 capsule cholecalciferol (vitamin D3) 250 250 mcg PO DAILY 06/29/21 03/02/22 mcg (10,000 unit) capsule tumeric 100 mg-dionicio 150 mg-olive cap PO 06/29/21 07/27/21 50 mg-oreg 150 mg-caprylate capsule Previous Rx's Medication Instructions Recorded estradiol 10 mcg vaginal tablet 10 mcg vaginal HS #24 tabs 04/25/17 (Vagifem) alprazolam 0.5 mg tablet 0.5 mg PO ONCE PRN claustrophobia 12/17/20 #2 tabs Allergies Allergy/AdvReac Type Severity Reaction Status Date / Time tetracycline Allergy Mild Rash Verified 03/02/22 13:22 General Stated Complaint: SOB PROSPER: 3 Review of Systems All systems reviewed & are unremarkable except as noted in HPI and below ENT Ears, Nose, Mouth, and Throat: Reports as per HPI, Denies hoarseness and Reports nose pain (Odd smells) PFSH All Active Problems (Updated 03/02/22 @ 15:13 by Rose Webb NP) Altered olfactory perception (Acute) Chronic eczematoid otitis externa of both ears (Acute) Cellulitis of hand, right (Acute) Traumatic rotator cuff tear (Acute) Depo-Medrol injection: 07/27/21; 02/18/2021 Visit for wound check (Acute) Abscess of axilla, left (Acute) Medical History Adjustment disorder with depressed mood Anxiety Atrophic vaginitis (11/20/13) Vagifem 10mcg PV HS twice weekly Dermatitis of ear canal Dyspareunia in female (03/07/16) GERD (gastroesophageal reflux disease) Hx of hyperlipidemia Hyperlipidemia Iliotibial band syndrome of left side (10/18/17) Nasal vestibulitis Obesity Osteoarthritis Prediabetes Primary osteoarthritis of left knee (09/06/17) Seborrheic dermatitis Surgical History History of hysterectomy Family History Father Hypertension Mother Osteoarthritis Hypertension Self Osteoarthritis Lactose intolerance Social History Smoking/Tobacco Use Status: Never Smoking risk assessment performed?: Yes Alcohol Intake: current Alcohol Intake frequency: holidays/special occasions only Substance use type: does not use Current gender identity: female Do you feel safe at home: Yes Do you feel safe in your relationship?: Yes Exam Narrative Exam Narrative: Constitutional: Alert and oriented x3. Appears stated age. Normal body habitus. Head: Normocephalic, no trauma. Eyes: Pupils PERRL, Red reflex noted, EOM's intact. Eyelids symmetrical without lesions, discharge, or swelling. ENT: Bilateral TM's WNL, External ear normal to inspection, no mastoid TTP, swelling, or erythema, Nasal turbinates WNL, no nasal discharge. Normal dentition, Posterior pharynx WNL, no exudate. Chest: RRR, Normal S1, S2, distal pulses intact. Resp: Lungs clear to auscultation bilaterally, no wheezes, rales, or rhonchi. Abdomen: Soft, non-distended, Normoactive bowel sounds all 4 quads. Musculoskeletal: Normal gait, 5/5 strength to all four extremities. Skin: No suspicious rashes or lesions. Capillary refill less than 2 sec. Neurologic: Cranial nerves II-XII intact. Alert and oriented x 3. Motor: No deficits noted. Sensory: Intact bilaterally all 4 extremities. Hematologic/Lymphatic: No ecchymosis, no lymphadenopathy. Course Vital Signs Vital signs: Vital Signs Temperature 36.4 C 03/02/22 12:43 Pulse 76 03/02/22 12:43 Respiratory Rate 20 03/02/22 12:43 Blood Pressure 162/75 H 03/02/22 12:43 Pulse Oximetry 99 03/02/22 12:43 Temperature 36.4 C 03/02/22 12:43 Temperature Source Temporal Artery Scan 03/02/22 12:43 Pulse 76 03/02/22 12:43 Respiratory Rate 20 03/02/22 12:43 Respiratory Effort 03/02/22 13:09 Blood Pressure 162/75 H 03/02/22 12:43 Pulse Oximetry 99 03/02/22 12:43 Pain Level 0 03/02/22 12:43 Lab/Test Results Lab/Test Results: Laboratory Tests Range/Units 03/02/22 13:00 WBC (4.4-10.8) 10^3/uL 7.15 RBC (3.93-5.22) 10^6/uL 4.23 Hgb (11.2-15.7) g/dL 12.9 Hct (36.0-46.0) % 39.3 MCV (80-95) fL 93 MCH (27.0-33.0) pg 30.5 MCHC (32.0-36.0) % 32.8 RDW (11.7-14.6) % 13.2 Plt Count (130-400) 10^3/uL 364 MPV (8.0-11.0) fL 10.1 Immature Gran % 0.3 Neutrophils % 55.6 Lymphocytes % 35.5 Monocytes % 6.9 Eosinophils % 1.0 Basophils % 0.7 Nucleated RBC % (0.0-0.3) % 0.0 Absolute Neutrophils (1.2-6.7) 10^3/uL 3.98 Absolute Lymphocytes (1.2-3.4) 10^3/uL 2.54 Absolute Monocytes (0.1-0.8) 10^3/uL 0.49 Absolute Eosinophils (0.0-0.7) 10^3/uL 0.07 Absolute Basophils (0.0-0.2) 10^3/uL 0.05
--- NOTE | 2022-03-02 13:27 | DI.RAD_ITS ---
Exam(s) XR PORTABLE CHEST AP EXAM: XR PORTABLE CHEST AP CLINICAL HISTORY: SOB TECHNIQUE: 2D digital imaging was performed of the chest. One image was obtained. An AP view was ob tained. COMPARISON: No exams were available for comparison FINDINGS: MEDIASTINUM: Normal. HEART: Normal. PULMONARY VASCULATURE: Normal. LUNGS: Clear. PLEURAL SPACE: No pleural effusion or pneumothorax. BONE:Within normal limits for the patient's age. OTHER FINDINGS:Normal. IMPRESSION: No acute pulmonary findings. DATA REPOSITORY: RADIATION DOSE DELIVERED:
[2022-03-02 13:32] LABS: ALT 29 U/L (14-59); AST 26 U/L (15-37); Albumin 3.9 g/dL (3.4-5.0); Alkaline Phosphatase 66 U/L (46-116); Anion Gap 8.1 mmol/L (3-11); BUN 10 mg/dL (7-18); Bilirubin, Total 0.2 mg/dL (0.2-1.0); CO2 28.9 mmol/L (21.0-32.0); CREATININE 0.9 mg/dL (0.55-1.02); Calcium 9.2 mg/dL (8.5-10.1); Chloride 102 mmol/L (98-107); Estimated GFR 70.51 (mL/min/1.73m2); Glucose 131 mg/dL (74-106); Potassium 3.9 mmol/L (3.5-5.1); Sodium 139 mmol/L (136-145); Troponin I < 50 ng/L (<or=60)
[2022-03-02 13:41] VITALS: RESP 18
[2022-03-02 13:54] LABS: *AMPHETAMINES SCREEN URINE Negative (Negative); *BARBITURATES SCREEN URINE Negative (Negative); *BENZODIAZEPINES SCREEN URINE Negative (Negative); Cannabinoids THC Negative (Negative); Cocaine Screen,Urine Negative (Negative); METHADONE URINE SCREEN Negative (Negative); OPIATES URINE SCREEN Negative (Negative)
[2022-03-02 13:56] LABS: Tricyclic Antidepressants Negative (Negative)
[2022-03-02 13:58] LABS: BE (Venous) 5 mmol/L (-2-3); HCO3 (Venous) 30 mmol/L (23-28); O2 Sat (Venous) 46 %; TCO2 (Venous) 28 mmol/L (24-29); pCO2 (Venous) 51 mmHg (41-51); pH (Venous) 7.37 (7.31-7.41); pO2 (Venous) 27 mmHg
[2022-03-02 14:15] VITALS: BP 158/70; PULSE 59
[2022-03-02 14:31] VITALS: BP 148/65; PULSE 60
[2022-03-02 15:01] LABS: Carboxyhemoglobin 1.8 %
[2022-03-02 15:29] VITALS: BP 148/65; PULSE 60
--- NOTE | 2022-03-03 09:02 | NUR.NOTE ---
Nursing Note referral to cm to see if ent appointment can be moved up
== END 2022-03-02 15:50 | disposition home or self-care (01) ==
PROVIDERS: Emergency Provider Registered Nurse Emergency; PCP Family Medicine
DX: R43.9 Unspecified disturbances of smell and taste (principal); Z20.822 Contact with and (suspected) exposure to COVID-19; R06.02 Shortness of breath; Z79.899 Other long term (current) drug therapy
CPT/HCPCS: 36415; 80053; 80307; 82375; 82805; 93005; 99284; 99285; 70450; 71045; 83735; 84484; 85025; 93010

== ENCOUNTER → 2022-04-21 10:15 | Outpatient (BNVA) | payer MEDICARE, SELFPAY | PROVIDERS: PCP Family Medicine; Referring Provider Family Medicine; Visit Provider Physician Assistant | DX: S46.011D Strain of muscle(s) and tendon(s) of the rotator cuff of right shoulder, subsequent encounter (principal); X58.XXXD Exposure to other specified factors, subsequent encounter | CPT/HCPCS: 20610; J1040 ==

== ENCOUNTER 2022-05-23 02:57 | Outpatient (CLI) | payer MEDICARE, SELFPAY ==
[2022-05-23 07:39] LABS: Hemoglobin A1C 6.3 % (<5.7)
== END 2022-05-23 02:58 | disposition home or self-care (01) ==
LOC: LBO 02:57
PROVIDERS: PCP Family Medicine; Visit Provider Family Medicine
DX: R73.03 Prediabetes (principal)
CPT/HCPCS: 36415; 83036

== ENCOUNTER → 2022-07-25 08:01 | Outpatient (BNVA) | payer MEDICARE, SELFPAY | PROVIDERS: PCP Family Medicine; Referring Provider Family Medicine | DX: S46.011A Strain of muscle(s) and tendon(s) of the rotator cuff of right shoulder, initial encounter (principal); X58.XXXA Exposure to other specified factors, initial encounter | CPT/HCPCS: 20610; J1040 ==

== ENCOUNTER → 2023-02-22 02:52 | Outpatient (CLI) | payer MEDICARE, SELFPAY ==
--- NOTE | 2023-02-22 07:45 | DI.MAMMO_ITS ---
Exam(s) MAMMO SCREENING EXAM: MAMMO SCREENING CLINICAL HISTORY: SCREENING, Z12.31 TECHNIQUE: Mammograms were interpreted according to the usual protocol including computer analysis w [employer] CAD system, tomosynthesis and C-view imaging. COMPARISON: 2015 through 2021 FINDINGS: The breasts are composed of heterogeneously dense fibroglandular densities, Breast Density category C . No suspicious masses or suspicious microcalcifications are seen. No skin thickening or abnormal axillary lymph nodes are seen. There has been no significant change from prior exams. IMPRESSION: BI-RADS Category 1, Negative mammogram. Yearly screening mammography is recommended. Breast Density Category C, heterogeneously Dense. The mammogram demonstrates the patient's breast tissue is dense. Dense breast tissue is very common a nd is not abnormal but dense breast tissue can make it harder to find cancer on a mammogram. Also, de nse breast tissue may increase breast cancer risk. This information about the result of the mammogram report was provided to the patient to raise their awareness. Use this report when you speak with the patient about their risks for breast cancer, which includes their family history. At that time, you may recommend additional screening tests (Ultrasound or MRI) as they might be useful based on their r isk. A negative radiographic report should not delay biopsy if a dominant or clinically suspicious mass is present. Up to ten percent of cancers are not identified on mammography. A negative report may reinforce clinical impression. Adenosis and dense breasts may obscure an underlying neoplasm. False positive reports average 6 to 10%.
== END ==
PROVIDERS: PCP Family Medicine; Visit Provider Family Medicine
DX: Z12.31 Encounter for screening mammogram for malignant neoplasm of breast (principal); R92.333 Mammographic heterogeneous density, bilateral breasts
CPT/HCPCS: 77063; 77067

== ENCOUNTER → 2023-03-09 12:56 | Outpatient (BNVA) | payer MEDICARE, SELFPAY | PROVIDERS: PCP Family Medicine; Referring Provider Family Medicine | DX: S46.011A Strain of muscle(s) and tendon(s) of the rotator cuff of right shoulder, initial encounter (principal); X58.XXXA Exposure to other specified factors, initial encounter | CPT/HCPCS: 20610; J1040 ==

== ENCOUNTER 2024-01-26 02:49 | Outpatient (CLI) | payer MEDICARE, SELFPAY ==
[2024-01-26 07:38] LABS: HCT 35.8 % (36.0-46.0); HGB 11.8 g/dL (11.2-15.7); MCH 30.3 pg (27.0-33.0); MCV 92 fL (80-95); MPV 9.1 fL (8.0-11.0); Platelet Count 389 10^3/uL (130-400); RBC 3.89 10^6/uL (3.93-5.22); RDW 13.2 % (11.7-14.6); RDW-SD 44.2 fL; WBC 6.18 10^3/uL (4.4-10.8)
[2024-01-26 07:58] LABS: Hemoglobin A1C 6.6 % (<5.7)
[2024-01-26 08:35] LABS: Calculated LDL 61 mg/dL (<100); Cholesterol 152 mg/dL (<200); Ferritin 74 ng/mL (8-252); HDL Cholesterol 63 mg/dL (40-60); Triglyceride 141 mg/dL (<150)
== END 2024-01-26 02:50 | disposition home or self-care (01) ==
PROVIDERS: PCP Family Medicine; Visit Provider Family Medicine
DX: E78.5 Hyperlipidemia, unspecified (principal); R73.03 Prediabetes; Z86.2 Personal history of diseases of the blood and blood-forming organs and certain disorders involving the immune mechanism
CPT/HCPCS: 36415; 80061; 85027; 82728; 83036

== ENCOUNTER 2024-02-07 16:09 | Outpatient (REF) | payer MEDICARE, SELFPAY ==
[2024-02-08 08:21] LABS: COMMENT (LAB VIEW ONLY) 268.86 mg/dL
== END 2024-02-07 16:10 | disposition home or self-care (01) ==
LOC: NCHCN 16:09
PROVIDERS: PCP Family Medicine; Visit Provider Family Medicine
DX: E11.9 Type 2 diabetes mellitus without complications (principal)
CPT/HCPCS: 82043; 82570

== ENCOUNTER 2024-02-12 18:23 | Outpatient (REF) | payer MEDICARE, SELFPAY ==
[2024-02-12 17:24] LABS: Bilirubin Negative (Negative); Blood Small (Negative); Clarity Clear (Clear); Glucose Negative (Negative); Ketones Negative (Negative); Leukocyte Esterase Trace (Negative); Nitrite Negative (Negative); Urobilinogen 0.2 mg/dL (Up to 0.2)
[2024-02-12 17:35] LABS: Bacteria Negative HPF (Negative); C & S Indicated? No; Crystals Negative HPF (Negative); Epithelial Cells Rare HPF (Negative); Mucus Negative (Negative); WBC 0-2 HPF (0-5)
== END 2024-02-12 18:24 | disposition home or self-care (01) ==
LOC: NCHCN 18:23
PROVIDERS: PCP Family Medicine; Visit Provider Family Medicine
DX: R80.9 Proteinuria, unspecified (principal)
CPT/HCPCS: 81003; 81015

== ENCOUNTER 2024-02-26 01:30 | Outpatient (CLI) | payer MEDICARE, SELFPAY ==
--- NOTE | 2024-02-26 08:08 | DI.MAMMO_ITS ---
Exam(s) MAMMO SCREENING EXAM: MAMMO SCREENING CLINICAL HISTORY: Z12.31 Screening TECHNIQUE: Bilateral full field digital CC and MLO mammographic images were obtained with 3D tomosyn thesis and utilizing computer aided detection (CAD). COMPARISON: Available for comparison. FINDINGS: Masses/Architectural Distortion: None seen. Microcalcifications: No suspicious pleomorphic-type are seen. Skin Thickening/Nipple Retraction: None. IMPRESSION: 1. No significant interval change with no specific features of malignancy noted. 2. Unless there is more urgent need, screening mammography is recommended, as per [employer] guidelines. BI-RADS Category 1 - Negative Breast Density - Category B - Scattered areas of fibroglandular density Breast density category C or D implies that the patient has dense breast tissue. Dense breast tissue is very common and is not abnormal but dense breast tissue can make it harder to find cancer on a ma mmogram. Also, dense breast tissue may increase their breast cancer risk. This information about the result of the mammogram report was provided to the patient to raise their awareness. Use this report when you speak with the patient about their risks for breast cancer, which includes their family hist ory. At that time, you may recommend for more screening tests (Ultrasound or MRI) as they might be us eful based on their risk. A negative radiographic report should not delay biopsy if a dominant or clinically suspicious mass is present. Up to ten percent of cancers are not identified on mammography. A negative report may reinforce clinical impression. Adenosis and dense breasts may obscure an underlying neoplasm. False positive reports average 6 to 10%. Patient will receive a letter notifying them of these results.
== END 2024-02-26 01:50 ==
PROVIDERS: PCP Family Medicine; Visit Provider Family Medicine
DX: Z12.31 Encounter for screening mammogram for malignant neoplasm of breast (principal)
CPT/HCPCS: 77063; 77067

== ENCOUNTER 2024-02-26 11:08 | Outpatient (REF) | payer MEDICARE, SELFPAY ==
[2024-02-26 16:17] LABS: COMMENT (LAB VIEW ONLY) 16.64 mg/dL
[2024-02-26 16:22] LABS: Bilirubin Negative (Negative); Blood Trace-intact (Negative); Clarity Clear (Clear); Glucose Negative (Negative); Ketones Negative (Negative); Leukocyte Esterase Moderate (Negative); Nitrite Negative (Negative); Urobilinogen 0.2 mg/dL (Up to 0.2); pH 6.5 (5-8)
[2024-02-26 16:35] LABS: Epithelial Cells Moderate HPF (Negative)
[2024-02-26 16:36] LABS: Bacteria Rare HPF (Negative); C & S Indicated? No/Sq. Contamination; Casts Negative LPF (Negative); Crystals Negative HPF (Negative); Mucus Negative (Negative); RBC 0-2 HPF (0-2)
== END 2024-02-26 11:09 | disposition home or self-care (01) ==
LOC: NCHCN 11:08
PROVIDERS: PCP Family Medicine; Visit Provider Family Medicine
DX: R80.9 Proteinuria, unspecified (principal)
CPT/HCPCS: 81003; 81015; 82043; 82570

== ENCOUNTER 2024-02-27 02:22 | Outpatient (CLI) | payer MEDICARE, SELFPAY ==
[2024-02-27 13:20] LABS: ALT 36 U/L (14-59); AST 21 U/L (15-37); Alkaline Phosphatase 75 U/L (46-116); Anion Gap 9.1 mmol/L (3-11); BUN 17 mg/dL (7-18); Bilirubin, Total 0.32 mg/dL (0.2-1.0); CO2 28.9 mmol/L (21.0-32.0); CREATININE 0.9 mg/dL (0.55-1.02); Calcium 9.7 mg/dL (8.5-10.1); Chloride 101 mmol/L (98-107); Estimated GFR 69.64 (mL/min/1.73m2); Glucose 120 mg/dL (74-106); Potassium 4.4 mmol/L (3.5-5.1); Sodium 139 mmol/L (136-145); Total Protein 7.9 g/dL (6.4-8.2)
== END 2024-02-27 02:23 | disposition home or self-care (01) ==
PROVIDERS: PCP Family Medicine; Visit Provider Family Medicine
DX: R80.9 Proteinuria, unspecified (principal)
CPT/HCPCS: 36415; 80053

== ENCOUNTER 2024-04-05 07:44 | Emergency (ER) | payer MEDICARE, SELFPAY ==
[2024-04-05 07:46] VITALS: BP 181/69; PULSE 70; RESP 16; TEMP 36.4; O2SAT 97
[2024-04-05 07:53] VITALS: BP 181/69; PULSE 70; RESP 16; TEMP 36.4; O2SAT 97
--- NOTE | 2024-04-05 08:23 | W.ED.GENAD ---
Discharge Plan Disposition Patient Disposition: Home Condition: Good Discharge Details Clinical Impression: Cellulitis Primary Care Provider: Pearl Choe ED Provider: Jorge A Taveras Home Meds and New Rx's Prescriptions: New cephalexin 500 mg capsule 500 mg PO QID 7 Days Qty: 28 0RF No Action esomeprazole magnesium [Nexium 24HR] 20 mg capsule,delayed release(DR/EC) 20 mg PO DAILY ascorbic acid (vitamin C) 500 mg capsule 500 mg PO DAILY zufutchi-hvwq-cwyko-oreg-capry 100 mg-150 mg- 50 mg-150 mg capsule 1 cap PO DAILY cholecalciferol (vitamin D3) 250 mcg (10,000 unit) capsule 250 mcg PO DAILY atorvastatin 20 mg tablet 20 mg PO DAILY calcium carbonate 500 MG tablet 500 mg PO ONCE Patient Comments: 09/06/17 No longer taking. HJG estradiol [Vagifem] 10 MCG tablet 10 mcg VG HS Qty: 24 4RF triamcinolone acetonide 0.1 % lotion 1 applic topical DAILY hydrocortisone 2.5 % cream 1 applic topical BID PRN multivitamin Tablet 1 tab PO DAILY Discharge Instructions Instructions: Cellulitis (Skin Infection), Adult ED Additional Instructions: At this time you have evidence of cellulitis on your eyebrow. Please continue to apply the bacitracin ointment, and take the Keflex as prescribed. As we discussed together there is potential for reaction in your gut similar to previous episodes. It be best to mitigate all potential reactive components while taking this medication. Please take probiotic with active culture like yogurt every day, take an oral probiotic pill as well. Please avoid any foods that can cause mild gut inflammation like meat based products, strong carbohydrates, processed foods, high sugar content foods. Please stick with a high-fiber bland diet while on the antibiotic. If you notice any worsening of your symptoms, or any new symptoms such as vomiting, diarrhea, fever, chills, shortness of breath, chest pain, numbness, weakness, or fainting , please return immediately to the emergency department for reevaluation. Please follow up with your primary care provider as soon as possible for reassessment and reevaluation. As always, it was a pleasure participating in your medical care today. Referrals: Pearl Choe MD [Primary Care Provider] - HPI General Date/Time Provider Initiated Documentation: 04/05/24 08:23. 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 Patient states that there was a small pimple that started about 4 days ago, she has been applying warm compresses and topical bacitracin. Unfortunately it has gradually been worsening, it has encompassed the majority of the right lateral aspect of the right brow. She denies fever or chills. No pain in the eye with movement. No pain over the eyeball or upper lid itself. She denies any other complaints at this time. This does appear similar to previous episodes. No other modifying factors. Related Data Home Medications ?Medication ?Instructions ?Recorded ?Confirmed calcium carbonate 500 mg PO ONCE 08/30/12 04/05/24 estradiol 10 mcg vaginal tablet 10 mcg vaginal HS #24 tabs 04/25/17 04/05/24 (Vagifem) esomeprazole magnesium 20 mg 20 mg PO DAILY 11/30/20 04/05/24 capsule,delayed release (Nexium 24HR) hydrocortisone 2.5 % topical cream 1 applic topical BID PRN 05/24/21 04/05/24 multivitamin 1 tab PO DAILY 05/24/21 04/05/24 triamcinolone acetonide 0.1 % 1 applic topical DAILY 05/24/21 04/05/24 lotion ascorbic acid (vitamin C) 500 mg 500 mg PO DAILY 06/29/21 04/05/24 capsule cholecalciferol (vitamin D3) 250 250 mcg PO DAILY 06/29/21 04/05/24 mcg (10,000 unit) capsule turmeric 100 mg-dionicio 150 1 cap PO DAILY 06/29/21 04/05/24 mg-olive 50 mg-oreg 150 mg-capryl capsule atorvastatin 20 mg tablet 20 mg PO DAILY 03/09/23 04/05/24 cephalexin 500 mg capsule 500 mg PO QID 7 days #28 caps 04/05/24 Previous Rx's ?Medication ?Instructions ?Recorded estradiol 10 mcg vaginal tablet 10 mcg vaginal HS #24 tabs 04/25/17 (Vagifem) cephalexin 500 mg capsule 500 mg PO QID 7 days #28 caps 04/05/24 Allergies Allergy/AdvReac Type Severity Reaction Status Date / Time tetracycline Allergy Mild Rash Verified 04/05/24 07:50 General Stated Complaint: EyeProblem PROSPER: 4 Review of Systems All systems reviewed & are unremarkable except as noted in HPI and below Exam Narrative Exam Narrative: 1.Const: Well-nourished, Well-developed, appearing stated age 2.Eyes: PERRL, no conjunctival injection, and symmetrical lids. 3.ENT: Atraumatic external nose and ears. Moist MM. Neck: Symmetric, trachea midline, No thyromegaly. 4.CVS: +S1/S2, Peripheral pulses 2+ and equal in all extremities. Brisk capillary refill in all extremities. 5.RESP: Unlabored respiratory effort. Clear to auscultation bilaterally. No wheezes rales or rhonchi 6.GI: Soft, Nontender/Nondistended, No hepatosplenomegaly. No guarding or rebound. 7.MSK: Normocephalic/Atraumatic, Extremities w/o deformity or ttp No cyanosis or clubbing, Normal movement of all extremities 8.Skin: Warm, Dry. Patient's right brow demonstrates swelling over the lateral aspect with erythema. Mild edema but no abscess or fluctuance. No swelling or tenderness over the upper or lower lid. No evidence of pre or postseptal cellulitis. No conjunctival injection, no drainage. No discharge. 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 Sensation grossly intact, no focal neurologic deficits. 10.Psych: (AAO) x3. Appropriate mood and affect Course Vital Signs Vital signs: Vital Signs Temperature 36.4 C 04/05/24 07:46 Pulse 70 04/05/24 07:46 Respiratory Rate 16 04/05/24 07:46 Blood Pressure 181/69 H 04/05/24 07:46 Pulse Oximetry 97 04/05/24 07:46 Temperature 36.4 C 04/05/24 07:53 Temperature Source Temporal Artery Scan 04/05/24 07:53 Pulse 70 04/05/24 07:53 Respiratory Rate 16 04/05/24 07:53 Respiratory Effort Normal, Non-Labored 04/05/24 07:50 Blood Pressure 181/69 H 04/05/24 07:53 Blood Pressure Position Sitting 04/05/24 07:53 Pulse Oximetry 97 04/05/24 07:53 Oxygen Delivery Method Room Air 04/05/24 07:53 Oxygen Flow Rate 0 04/05/24 07:53 Pain Level 0 04/05/24 07:53 Medical Decision Making 68-year-old female with a past medical history of intermittent recurrent cellulitis, borderline diabetes, GERD, high cholesterol, and 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 Patient states that there was a small pimple that started about 4 days ago, she has been applying warm compresses and topical bacitracin. Unfortunately it has gradually been worsening, it has encompassed the majority of the right lateral aspect of the right brow. She denies fever or chills. No pain in the eye with movement. No pain over the eyeball or upper lid itself. She denies any other complaints at this time. This does appear similar to previous episodes. No other modifying factors. Patient's right brow demonstrates swelling over the lateral aspect with erythema. Mild edema but no abscess or fluctuance. No swelling or tenderness over the upper or lower lid. No evidence of pre or postseptal cellulitis. No conjunctival injection, no drainage. No discharge. No evidence of sepsis or systemic illness. Because of the location of the cellulitis, and her already active treatment with warm compresses and topical antibiotic, I do think that the next stage certainly indicates oral antibiotic therapy. Patient is very concerned about this though because of her previous episode of immune-based colonic irritation. We had a long discussion about the risks and benefits. I did discuss my concern for potential extravasation of the infection to develop septal cellulitis, or worsening infection. She definitely understands this that she has been trying actively to prevent this with her other supportive therapies. After long discussion weighing the risks and benefits, we have elected to move forward with oral antibiotic therapy. We will avoid clindamycin for the time and utilize Keflex. Unfortunately she did have this sort of got reaction to Keflex in the past, but she prefers that over the more potentially irritating clindamycin. We discussed dietary changes to transition to in the meantime. We recommend a diet based on a low inflammation profile. Recommend avoidance of meats, complex carbohydrates, processed foods, high sugar foods, or spicy or tomato-based products as well. We will stick with a bland high-fiber more natural diet. Will do probiotic supplement as well as yogurt with live culture. Recommend close follow-up with PCP for continued monitoring of symptomatology. Discussed red flags for which to return. I have extensively reviewed the treatment plan and discharge instructions with the patient. I have addressed all patient concerns at this time. The patient was made aware of what symptoms to monitor for that would warrant a return to the emergency department. Discussed the plan with the patient, they demonstrate verbal understanding and agreement with our assessment and plan at this time. The documentation in this chart was dictated using [employer] dictation software. Please excuse any dictation errors. Quality:SDOH Health Related Social Needs: No Data to Display PFSH All Active Problems Cellulitis (Acute) Phantosmia (Acute) Chronic eczematoid otitis externa of both ears (Acute) Cellulitis of hand, right (Acute) Traumatic rotator cuff tear (Acute) Depo-Medrol injection: 03/09/23; 07/25/22; 04/21/2022; 07/27/21; 02/18/2021 Visit for wound check (Acute) Abscess of axilla, left (Acute) Medical History Anxiety Osteoarthritis Adjustment disorder with depressed mood Obesity Seborrheic dermatitis GERD (gastroesophageal reflux disease) Hyperlipidemia Prediabetes Nasal vestibulitis Dermatitis of ear canal Atrophic vaginitis (11/20/13) Vagifem 10mcg PV HS twice weekly Dyspareunia in female (03/07/16) Iliotibial band syndrome of left side (10/18/17) Primary osteoarthritis of left knee (09/06/17) Hx of hyperlipidemia Surgical History History of hysterectomy Family History Father Hypertension Mother Osteoarthritis Hypertension Self Osteoarthritis Lactose intolerance Social History Smoking/Tobacco Use Status: Never Smoking risk assessment performed?: Yes Alcohol Intake: current Alcohol Intake frequency: holidays/special occasions only Drug use: Never Substance use type: does not use Current gender identity: female Do you feel safe at home: Yes Do you feel safe in your relationship?: Yes
[2024-04-05] MEDS: Cephalexin 500 MG CAP PO (08:27)
[2024-04-05] MEDS: Cephalexin 500 MG CAP, 4 CAPS/BTL PO (08:32)
[2024-04-05 08:38] VITALS: BP 163/72; PULSE 62; RESP 13; O2SAT 94
== END 2024-04-05 08:53 | disposition home or self-care (01) ==
LOC: ER 08:51
PROVIDERS: Emergency Provider Student in an Organized Health Care Education/Training Program; PCP Family Medicine
DX: L03.211 Cellulitis of face (principal)
CPT/HCPCS: 99283; 99284

== ENCOUNTER 2025-03-11 03:33 | Outpatient (CLI) | payer MEDICARE, SELFPAY ==
[2025-03-11 14:18] LABS: Hemoglobin A1C 5.9 % (<5.7)
[2025-03-11 15:40] LABS: Cholesterol 306 mg/dL (<200); HDL Cholesterol 66 mg/dL (>40)
== END 2025-03-11 03:34 | disposition home or self-care (01) ==
LOC: LBO 03:33
PROVIDERS: PCP Family Medicine; Visit Provider Family Medicine
DX: E11.9 Type 2 diabetes mellitus without complications (principal); E78.5 Hyperlipidemia, unspecified
CPT/HCPCS: 36415; 80061; 83036

== ENCOUNTER 2025-03-19 10:25 | Outpatient (REF) | payer MEDICARE, SELFPAY | END 2025-03-19 10:26 | disposition home or self-care (01) | LOC: NCHCN 10:25 | PROVIDERS: PCP Family Medicine; Visit Provider Family Medicine | DX: E11.9 Type 2 diabetes mellitus without complications (principal) | CPT/HCPCS: 82043; 82570 ==

== ENCOUNTER → 2025-03-26 01:17 | Outpatient (CLI) | payer MEDICARE, SELFPAY ==
--- NOTE | 2025-03-26 | DI.DEXA_ITS ---
Exam(s) XR DEXA BONE DENSITY W/WO SERA EXAM: XR DEXA BONE DENSITY W/WO SERA CLINICAL HISTORY: SCREENING FOR OSTEOPOROSIS, ASYMPTOMATIC MENOPAUSAL STATE Z78.0 TECHNIQUE: COMPARISON: CR XR DEXA BONE DENSITY W/WO SERA from 10/01/2021 FINDINGS: Lateral Spine Image: Unremarkable. No compression deformities identified. Left hip: Total T-Score: -1.3. This compares to -1.0 on the prior examination. Total Z-Score: 0.1 T- and Z-scores: Findings are consistent with osteopenia. Lumbar Spine: Total T-Score: -0.3. This compares to -0.8 on the prior examination. Total Z-Score: 1.8 T- and Z-scores: Within normal limits. IMPRESSION: No evidence of osteoporosis.
== END ==
PROVIDERS: PCP Family Medicine; Visit Provider Family Medicine
DX: Z78.0 Asymptomatic menopausal state (principal)
CPT/HCPCS: 77080